=== PATIENT | male | born 2005 | race Caucasian/White ===

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

== ENCOUNTER 2023-09-20 23:32 | Emergency (ER) | payer MEDICAID ==
[~2023-09-20] VITALS: Ht 165.1 cm; Wt 76.4 kg
[2023-09-21] MEDS ORDERED: clindamycin 150mg capsule PO ONE (00:40)
[2023-09-21] MEDS ORDERED: IBUP-1984 PO (00:43)
[2023-09-21] MEDS ORDERED: CLIN300C70 PO (00:43)
[2023-09-21] MEDS ORDERED: ibuprofen tablet 400 MG TABLET PO ONE (00:45)
[2023-09-21 00:46] VITALS: BP 126/79; PULSE 85; RESP 17; TEMP 97.7; O2SAT 98
== END 2023-09-21 01:38 | disposition home or self-care (01) ==
LOC: ER 23:33
DX: H66.92 Otitis media, unspecified, left ear (principal); Z88.0 Allergy status to penicillin
CPT/HCPCS: 99283